=== PATIENT | male | born 1985 | race Two or more races ===

== ENCOUNTER 2020-09-22 21:36 | Emergency (ER) | payer MEDICAID ==
[~2020-09-22] VITALS: Ht 170.2 cm; Wt 81.6 kg
[2020-09-22] MEDS ORDERED: SULFAMETH/TRIMETH 800/160 MG TABLET PO ONE (22:15)
[2020-09-22] MEDS ORDERED: ONDANSETRON ODT 4 MG TAB.RAPDIS SL ONE (22:15)
[2020-09-22] MEDS ORDERED: HYDROCODONE/APAP 10-325 MG TABLET PO ONE (22:15)
[2020-09-22] MEDS ORDERED: ONDANSETRON ODT 4 MG TAB.RAPDIS ONE (22:18)
[2020-09-22] MEDS ORDERED: HYDROCODONE/APAP 10-325 MG TABLET ONE (22:18)
[2020-09-22] MEDS ORDERED: SULFAMETH/TRIMETH 800/160 MG TABLET ONE (22:18)
[2020-09-22 22:23] VITALS: BP 135/82
--- NOTE | 2020-09-22 22:23 | NUR ---
Patient discharged to home in stable condition. Written and verbal after care instructions given. Patient verbalizes understanding of instructions. Stressed follow up or return to ER for worsening s/s.
== END 2020-09-22 22:24 | disposition home or self-care (01) ==
LOC: ER 21:39
DX: H92.02 Otalgia, left ear (principal); R03.0 Elevated blood-pressure reading, without diagnosis of hypertension
CPT/HCPCS: A4663; Q0162